=== PATIENT | female | born 1950 | race Caucasian/White ===

== ENCOUNTER 2023-02-05 19:46 | Emergency (ER) | payer MEDICARE ==
[2023-02-05] MEDS ORDERED: Oxymetazoline 0.05% Nasal Spray 30 ML Bottle NAS ONE (20:31)
== END 2023-02-05 21:55 | disposition home or self-care (01) ==
LOC: JP.ED 19:46
DX: R04.0 Epistaxis (principal)
CPT/HCPCS: 99283; A9270; 99282

== ENCOUNTER 2023-03-27 09:11 | Emergency (ER) | payer MEDICARE ==
[2023-03-27] MEDS ORDERED: Oxymetazoline 0.05% Nasal Spray 30 ML Bottle NAS ONE (10:11)
[2023-03-27] MEDS ORDERED: Tranexamic Acid 1,000 MG/10 ML Vial TOP ONE (10:11)
== END 2023-03-27 12:09 | disposition home or self-care (01) ==
LOC: JP.ED 09:11
DX: R04.0 Epistaxis (principal); E03.9 Hypothyroidism, unspecified; Z79.899 Other long term (current) drug therapy
CPT/HCPCS: 99283; A9270